=== PATIENT | male | born 1970 | race African-American/Black ===

== ENCOUNTER 2017-06-05 09:13 | Inpatient (IN) | payer MEDICAID ==
[~2017-06-05] VITALS: Ht 182.9 cm; Wt 85.7 kg
[~2017-06-05 09:13] MED LIST: ATOR10TA69 PO; DOCU-138 PO; HYDR-4135 PO; LISI10TA5 PO; METO50TA5 PO; PROT40 PO; QUET100T PO; SUCR1TAB30 PO; VANCOMYCIN IV
[2017-06-05] MEDS ORDERED: MORPHINE SULFATE 4 MG/ML CPJ (NOT FOR IM USE) IV STA (09:22)
[2017-06-05] MEDS ORDERED: METOCLOPRAMIDE HCL 10MG/2ML VIAL IV STA (09:22)
[2017-06-05 09:39] LABS: BASOPHILS % 0.6 % (0.0-2.0); HEMATOCRIT. 31.6 % (42.0-52.0); HEMOGLOBIN. 10.6 g/dL (14.0-18.0); LYMPHOCYTES % 46.4 % (20.0-50.0); MEAN CORPUSCULAR HEMOGLOBIN 28.4 pg (28.0-32.0); MEAN CORPUSCULAR VOLUME 84.6 fL (80.0-94.0); PLATELET 309 x1000/uL (130-400); RED BLOOD CELL COUNT 3.74 mill/uL (4.7-6.1); RED CELL DISTRIBUTION WIDTH 16.9 % (11.6-14.6)
[2017-06-05 09:50] LABS: INR 1.1; PROTHROMBIN TIME 11.8 sec
[2017-06-05 09:53] LABS: CARBON DIOXIDE 26 mEq/L (21-32); CHLORIDE 105 mEq/L (98-107)
[2017-06-05] MEDS ORDERED: MORPHINE SULFATE 4 MG/ML CPJ (NOT FOR IM USE) IV ONE ×2 (10:45→14:15)
[2017-06-05] MEDS ORDERED: METRONIDAZOLE 500 MG PREMIX 100 ML IV ONE (11:30)
[2017-06-05] MEDS ORDERED: LEVOFLOXACIN 750MG PREMIX 150 ML IV ONE (11:30)
[2017-06-05] MEDS ORDERED: SODIUM CHLORIDE 0.9% 10ML VIAL ONE (13:38)
[2017-06-05] MEDS ORDERED: IOHEXOL-300 100 ML BOTTLE ONE (13:38)
[2017-06-05 14:06] LABS: CLARITY URINE CLEAR (CLEAR); COLOR URINE YELLOW (YELLOW); GLUCOSE URINE NEGATIVE (NEGATIVE); KETONES URINE NEGATIVE (NEGATIVE); LEUKOCYTE ESTERASE URINE 2+ (NEGATIVE); NITRITE URINE NEGATIVE (NEGATIVE); OCCULT BLOOD URINE 2+ (NEGATIVE); PH URINE 6.5 (4.5-8.0); PROTEIN URINE TRACE (NEGATIVE); SPECIFIC GRAVITY URINE 1.056 (1.005-1.030); UROBILINOGEN URINE 0.2 E.U./dL (0.2-1.0)
[2017-06-05 16:30] VITALS: BP 156/121
[2017-06-05] MEDS: HYDROMORPHONE HCL/PF 2MG/ML CPJ IV PRN ×2 (17:49→21:56)
[2017-06-05 17:52] VITALS: BP 156/121
[2017-06-05 18:30] VITALS: BP 111/81
[2017-06-05] MEDS ORDERED: MORPHINE SULFATE 4 MG/ML CPJ (NOT FOR IM USE) IV PRN ×2 (19:30)
[2017-06-05] MEDS ORDERED: IPRATROPIUM/ALBUTEROL 0.5-3(2.5)MG/3ML NEB INH PRN (19:30)
[2017-06-05] MEDS ORDERED: ONDANSETRON HCL 4MG/2ML VIAL IV PRN (19:30)
[2017-06-05] MEDS ORDERED: DIPHENHYDRAMINE 50MG/ML VIAL IV PRN (19:30)
[2017-06-05] MEDS ORDERED: LORAZEPAM 2MG/ML CPJ IV PRN (19:30)
[2017-06-05 20:00] VITALS: BP 135/105
[2017-06-05] MEDS: DEXT 5%/0.45% NACL KCL 20MEQ/L 1,000 ML IV SCH (21:08)
[2017-06-05] MEDS: METRONIDAZOLE 500 MG PREMIX 100 ML IV SCH (21:53)
[2017-06-06] VITALS: BP 139/101
[2017-06-06 00:05] LABS: CREATINE KINASE 29 IU/L (39-308); TROPONIN I < 0.02 ng/mL (0.00-0.04)
[2017-06-06 03:42] LABS: *COCAINE SCREEN URINE PRESUMTIVE POSITIVE (NEGATIVE); CANNABINOID URINE SCREEN PRESUMTIVE POSITIVE (NEGATIVE); OPIATES URINE SCREEN PRESUMTIVE POSITIVE (NEGATIVE)
[2017-06-06 03:43] LABS: *AMPHETAMINES SCREEN URINE NEGATIVE (NEGATIVE); *BARBITURATES SCREEN URINE NEGATIVE (NEGATIVE); *BENZODIAZEPINES SCREEN URINE NEGATIVE (NEGATIVE); METHADONE URINE SCREEN NEGATIVE (NEGATIVE); PHENCYCLIDINE URINE SCREEN NEGATIVE (NEGATIVE)
[2017-06-06 04:00] VITALS: BP 130/89
[2017-06-06] MEDS: METRONIDAZOLE 500 MG PREMIX 100 ML IV SCH (05:22)
[2017-06-06] MEDS: DEXT 5%/0.45% NACL KCL 20MEQ/L 1,000 ML IV SCH (05:22)
[2017-06-06] MEDS: HYDROMORPHONE HCL/PF 2MG/ML CPJ IV PRN ×2 (06:15→11:19)
[2017-06-06 07:26] LABS: CHLORIDE 105 mEq/L (98-107)
[2017-06-06 07:39] LABS: BASOPHILS % 0.5 % (0.0-2.0); EOSINOPHILS % 2.6 % (0.0-5.0); HEMATOCRIT. 30.1 % (42.0-52.0); LYMPHOCYTES % 44.5 % (20.0-50.0); MEAN CORPUSCULAR HEMOGLOBIN 28.3 pg (28.0-32.0); MEAN CORPUSCULAR VOLUME 85.6 fL (80.0-94.0); MEAN PLATELET VOLUME 8.6 fl (7.4-10.4); MONOCYTES % 10.7 % (2.0-8.0); NEUTROPHILS % 41.7 % (40.0-76.0); PLATELET 264 x1000/uL (130-400); RED BLOOD CELL COUNT 3.52 mill/uL (4.7-6.1); RED CELL DISTRIBUTION WIDTH 16.9 % (11.6-14.6)
[2017-06-06 08:00] VITALS: BP 114/75
[2017-06-06 08:03] LABS: CARBON DIOXIDE 23 mEq/L (21-32); CREATINE KINASE 28 IU/L (39-308); HDL CHOLESTEROL 32 mg/dL (40-59); LDL CHOLESTEROL 71 mg/dL (5-100); TROPONIN I < 0.02 ng/mL (0.00-0.04)
[2017-06-06] MEDS ORDERED: POTASSIUM CHLORIDE 20MEQ TABLET SR PO SCH (10:45)
[2017-06-06] MEDS ORDERED: LEVOFLOXACIN 500MG PREMIX 100 ML IV SCH (11:00)
[2017-06-06 12:00] VITALS: BP 139/90
[2017-06-06 13:07] VITALS: BP 139/90
== END 2017-06-06 13:45 | disposition home or self-care (01) | DRG 463 ==
LOC: ER 09:37 → 8WST 14:05 → EDBEDREQ 14:08 → ENRESERV 15:22
PROVIDERS: ADMIT Internal Medicine; ATTEND Internal Medicine
DX: N39.0 Urinary tract infection, site not specified (principal); E44.0 Moderate protein-calorie malnutrition; K57.32 Diverticulitis of large intestine without perforation or abscess without bleeding; I10 Essential (primary) hypertension; E78.00 Pure hypercholesterolemia, unspecified; D64.9 Anemia, unspecified; K21.9 Gastro-esophageal reflux disease without esophagitis; E87.6 Hypokalemia; F20.9 Schizophrenia, unspecified; F41.9 Anxiety disorder, unspecified; R11.2 Nausea with vomiting, unspecified; F19.10 Other psychoactive substance abuse, uncomplicated; F31.9 Bipolar disorder, unspecified; Z72.89 Other problems related to lifestyle; Z79.899 Other long term (current) drug therapy; Z82.49 Family history of ischemic heart disease and other diseases of the circulatory system; Z88.5 Allergy status to narcotic agent
CPT/HCPCS: 36415; 74177; 80053; 80061; 80305; 81001; 82550; 83690; 84484; 85025; 85610; 87040; 96365; 96366; 96368; 96375; 96376; 99285; A4216; J1170; J1956; J2270; J2765; J3490; Q9967